=== PATIENT | male | born 1935 | race Caucasian/White ===

== ENCOUNTER 2021-08-19 14:25 | Inpatient (IN) | payer MEDICARE, OTHER ==
[2021-08-19] MEDS ORDERED: Sodium Chloride 0.9% 1,000 ML IV SCH ×2 (17:15→18:30)
[2021-08-19] MEDS ORDERED: Ondansetron PF 4 MG/2 ML Vial IVP PRN (17:36)
[2021-08-19] MEDS ORDERED: Ondansetron ODT 4 MG TAB PO PRN (17:36)
[2021-08-19] MEDS ORDERED: Acetaminophen 650 MG Suppository PR PRN (17:36)
[2021-08-19] MEDS ORDERED: Acetaminophen 325 MG TAB PO PRN (17:36)
[2021-08-19 18:11] LABS: Anion Gap 11 mmol/L (10-20); BUN (Urea Nitrogen) 15 mg/dL (8.4-25.7); Calc. Creatinine Clearance 61 mL/min (70-130); Calcium 8.6 mg/dL (7.8-10.44); Carbon Dioxide 24 mmol/L (23-31); Chloride 97 mmol/L (98-107); Estimated GFR 87; Glucose 117 mg/dL (83-110); Potassium 4.2 mmol/L (3.5-5.1); Sodium 128 mmol/L (136-145)
[2021-08-19 19:25] LABS: Sodium 128 mmol/L (136-145)
[2021-08-19] MEDS: Enoxaparin Sodium 40 MG/0.4 ML SYRINGE SC SCH (20:13)
[2021-08-19] MEDS: Tamsulosin HCl 0.4 MG CAP PO SCH (20:14)
[2021-08-20 02:11] LABS: Sodium 128 mmol/L (136-145)
[2021-08-20 04:46] LABS: #Lymphocytes 1.7 thou/uL (1.20-3.40); #Monocytes 0.9 thou/uL (0.11-0.59); #Neutrophils 4.6 thou/uL (1.40-6.50); %Basophils 0.4 % (0.0-1.0); %Eosinophils 0.3 % (0.0-10.0); %Lymphocytes 23.8 % (21.0-51.0); %Neutrophils 62.6 % (42.0-75.0); Hemoglobin 15.3 g/dL (14.0-18.0); Mean Corpuscular HGB CONC 34.1 g/dL (32.0-36.0); Mean Corpuscular Hemoglobin 32.2 pg (27.0-31.0); Mean Corpuscular Volume 94.3 fL (78.0-98.0); Mean Platelet Volume 6.4 fL (7.4-10.4); Platelet Count 195 thou/uL (130-400); RBC Distribution Width 11.8 % (11.5-14.5); Red Blood Cell (RBC) Count 4.76 mill/uL (4.70-6.10); White Blood Cell (WBC) Count 7.3 thou/uL (4.8-10.8)
[2021-08-20 05:07] LABS: Anion Gap 14 mmol/L (10-20); BUN (Urea Nitrogen) 14 mg/dL (8.4-25.7); Calc. Creatinine Clearance 61 mL/min (70-130); Calcium 8.7 mg/dL (7.8-10.44); Carbon Dioxide 21 mmol/L (23-31); Chloride 99 mmol/L (98-107); Estimated GFR 87; Glucose 95 mg/dL (83-110); Potassium 4.4 mmol/L (3.5-5.1); Sodium 130 mmol/L (136-145)
[2021-08-20] MEDS: Finasteride 5 MG TAB PO SCH (09:59)
[2021-08-20] MEDS: Tamsulosin HCl 0.4 MG CAP PO SCH ×2 (10:00→20:32)
[2021-08-20 12:35] VITALS: BMI 22.8
[2021-08-20 12:52] LABS: Sodium 128 mmol/L (136-145)
[2021-08-20] MEDS ORDERED: REMDESIVIR 100 MG in Sodium Chloride 0.9% 250 ML 230 ML IV SCH (13:15)
[2021-08-20] MEDS ORDERED: GUAIFENESIN SF SOLN 200 MG/10 ML UDCUP PO PRN (13:16)
[2021-08-20] MEDS ORDERED: Zinc Sulfate 220 MG CAP PO SCH (13:30)
[2021-08-20] MEDS ORDERED: Cholecalciferol 1,000 UNITS (25 MCG) TAB PO SCH (13:30)
[2021-08-20] MEDS ORDERED: Ascorbic Acid 500 mg Chewable Tablet PO SCH (13:30)
[2021-08-20] MEDS: Benzonatate 100 MG CAP PO SCH ×2 (14:13→20:34)
[2021-08-20] MEDS ORDERED: Albuterol 200 PUFF (6.7GM INHALER) INH PRN (14:30)
[2021-08-20 19:21] LABS: Sodium 130 mmol/L (136-145)
[2021-08-20] MEDS: Enoxaparin Sodium 40 MG/0.4 ML SYRINGE SC SCH (20:32)
[2021-08-20] MEDS: Cefepime 1 GM in Sodium Chloride 0.9% 100 ML IVPB SCH (20:32)
[2021-08-21 01:45] LABS: Sodium 130 mmol/L (136-145)
[2021-08-21 04:54] LABS: #Basophils 0.1 thou/uL (0.0-0.2); #Lymphocytes 1.3 thou/uL (1.20-3.40); #Monocytes 1.1 thou/uL (0.11-0.59); #Neutrophils 5.2 thou/uL (1.40-6.50); %Basophils 1.9 % (0.0-1.0); %Eosinophils 0.3 % (0.0-10.0); %Lymphocytes 16.8 % (21.0-51.0); Mean Corpuscular HGB CONC 33.9 g/dL (32.0-36.0); Mean Corpuscular Hemoglobin 32.1 pg (27.0-31.0); Mean Corpuscular Volume 94.6 fL (78.0-98.0); Mean Platelet Volume 6.4 fL (7.4-10.4); Platelet Count 214 thou/uL (130-400); RBC Distribution Width 11.7 % (11.5-14.5); Red Blood Cell (RBC) Count 4.67 mill/uL (4.70-6.10); White Blood Cell (WBC) Count 7.7 thou/uL (4.8-10.8)
[2021-08-21 05:06] LABS: Anion Gap 13 mmol/L (10-20); BUN (Urea Nitrogen) 13 mg/dL (8.4-25.7); Calc. Creatinine Clearance 65 mL/min (70-130); Calcium 8.3 mg/dL (7.8-10.44); Carbon Dioxide 18 mmol/L (23-31); Chloride 102 mmol/L (98-107); Estimated GFR 89; Glucose 86 mg/dL (83-110); Potassium 4.4 mmol/L (3.5-5.1); Sodium 129 mmol/L (136-145)
[2021-08-21] MEDS: Cefepime 1 GM in Sodium Chloride 0.9% 100 ML IVPB SCH (09:34)
[2021-08-21] MEDS: Finasteride 5 MG TAB PO SCH (09:35)
[2021-08-21] MEDS: Tamsulosin HCl 0.4 MG CAP PO SCH ×2 (09:35→20:49)
[2021-08-21] MEDS: Zinc Sulfate 220 MG CAP PO SCH (09:36)
[2021-08-21] MEDS: Cholecalciferol 1,000 UNITS (25 MCG) TAB PO SCH (09:36)
[2021-08-21] MEDS: Benzonatate 100 MG CAP PO SCH ×3 (09:36→20:49)
[2021-08-21] MEDS: Ascorbic Acid 500 mg Chewable Tablet PO SCH (09:36)
[2021-08-21 12:44] LABS: Campy jejuni + coli by PCR Negative (Negative); STEC Shiga Toxin 1+2 Negative (Negative); Salmonella spp. by PCR Negative (Negative); Shigella spp + EIEC by PCR Negative (Negative)
[2021-08-21] MEDS ORDERED: Diltiazem 125 MG in Sodium Chloride 0.9% 100 ML IVPB SCH (16:15)
[2021-08-21] MEDS: Enoxaparin Sodium 60 MG/0.6 ML SYRINGE SC SCH (20:48)
[2021-08-21] MEDS ORDERED: Cefepime 2 GM in Sodium Chloride 0.9% 100 ML IVPB SCH (21:00)
[2021-08-22 05:00] LABS: #Lymphocytes 1.5 thou/uL (1.20-3.40); #Monocytes 1.1 thou/uL (0.11-0.59); #Neutrophils 5.3 thou/uL (1.40-6.50); %Basophils 0.2 % (0.0-1.0); %Eosinophils 0.5 % (0.0-10.0); %Lymphocytes 18.4 % (21.0-51.0); %Monocytes 13.8 % (0.0-10.0); %Neutrophils 67.1 % (42.0-75.0); Hemoglobin 15.1 g/dL (14.0-18.0); Mean Corpuscular HGB CONC 33.9 g/dL (32.0-36.0); Mean Corpuscular Hemoglobin 32.1 pg (27.0-31.0); Mean Corpuscular Volume 94.8 fL (78.0-98.0); Mean Platelet Volume 6.3 fL (7.4-10.4); Platelet Count 224 thou/uL (130-400); RBC Distribution Width 11.7 % (11.5-14.5); Red Blood Cell (RBC) Count 4.71 mill/uL (4.70-6.10); White Blood Cell (WBC) Count 7.9 thou/uL (4.8-10.8)
[2021-08-22 05:43] LABS: Anion Gap 19 mmol/L (10-20); BUN (Urea Nitrogen) 17 mg/dL (8.4-25.7); Calc. Creatinine Clearance 61 mL/min (70-130); Calcium 8.7 mg/dL (7.8-10.44); Carbon Dioxide 13 mmol/L (23-31); Chloride 102 mmol/L (98-107); Estimated GFR 87; Glucose 87 mg/dL (83-110); Potassium 4.3 mmol/L (3.5-5.1); Sodium 130 mmol/L (136-145)
[2021-08-22] MEDS: Enoxaparin Sodium 60 MG/0.6 ML SYRINGE SC SCH ×2 (08:21→20:56)
[2021-08-22] MEDS: Finasteride 5 MG TAB PO SCH (08:22)
[2021-08-22] MEDS: Tamsulosin HCl 0.4 MG CAP PO SCH ×2 (08:22→20:56)
[2021-08-22] MEDS: Cholecalciferol 1,000 UNITS (25 MCG) TAB PO SCH (08:22)
[2021-08-22] MEDS: Ascorbic Acid 500 mg Chewable Tablet PO SCH (08:22)
[2021-08-22] MEDS: Zinc Sulfate 220 MG CAP PO SCH (08:22)
[2021-08-22] MEDS: Benzonatate 100 MG CAP PO SCH ×3 (08:23→20:56)
[2021-08-23 04:43] LABS: #Lymphocytes 1.4 thou/uL (1.20-3.40); #Monocytes 1.2 thou/uL (0.11-0.59); #Neutrophils 5.5 thou/uL (1.40-6.50); %Basophils 0.1 % (0.0-1.0); %Eosinophils 0.5 % (0.0-10.0); %Lymphocytes 17.6 % (21.0-51.0); %Monocytes 14.2 % (0.0-10.0); %Neutrophils 67.6 % (42.0-75.0); Hemoglobin 14.8 g/dL (14.0-18.0); Mean Corpuscular HGB CONC 33.8 g/dL (32.0-36.0); Mean Corpuscular Hemoglobin 32.3 pg (27.0-31.0); Mean Corpuscular Volume 95.4 fL (78.0-98.0); Mean Platelet Volume 6.3 fL (7.4-10.4); Platelet Count 246 thou/uL (130-400); RBC Distribution Width 11.7 % (11.5-14.5); Red Blood Cell (RBC) Count 4.59 mill/uL (4.70-6.10); White Blood Cell (WBC) Count 8.1 thou/uL (4.8-10.8)
[2021-08-23 05:10] LABS: BUN (Urea Nitrogen) 16 mg/dL (8.4-25.7); Calc. Creatinine Clearance 65 mL/min (70-130); Calcium 8.6 mg/dL (7.8-10.44); Carbon Dioxide 19 mmol/L (23-31); Chloride 100 mmol/L (98-107); Estimated GFR 89; Glucose 81 mg/dL (83-110); Potassium 4.4 mmol/L (3.5-5.1); Sodium 131 mmol/L (136-145)
[2021-08-23 05:51] LABS: Anion Gap 16 mmol/L (10-20)
[2021-08-23] MEDS: Enoxaparin Sodium 60 MG/0.6 ML SYRINGE SC SCH (09:42)
[2021-08-23] MEDS: Benzonatate 100 MG CAP PO SCH (09:42)
[2021-08-23] MEDS: Cholecalciferol 1,000 UNITS (25 MCG) TAB PO SCH (09:42)
[2021-08-23] MEDS: Finasteride 5 MG TAB PO SCH (09:42)
[2021-08-23] MEDS: Ascorbic Acid 500 mg Chewable Tablet PO SCH (09:42)
[2021-08-23] MEDS: Zinc Sulfate 220 MG CAP PO SCH (09:43)
[2021-08-23] MEDS: Tamsulosin HCl 0.4 MG CAP PO SCH (09:43)
[2021-08-23 16:22] VITALS: BP 109/62; TEMP 97.6
== END 2021-08-23 17:05 | disposition home or self-care (01) | DRG 178 ==
LOC: 2SW 15:37 → OBSVTOIN 08-21 08:52
PROVIDERS: ADMIT Hospitalist; ATTEND Hospitalist
PROC: 8E0ZXY6 Isolation (ICD-10-PCS; principal; 2021-08-21)
DX: U07.1 COVID-19 (principal); E87.1 Hypo-osmolality and hyponatremia; I48.92 Unspecified atrial flutter; N40.0 Benign prostatic hyperplasia without lower urinary tract symptoms; I45.5 Other specified heart block; I48.0 Paroxysmal atrial fibrillation; Z79.899 Other long term (current) drug therapy
CPT/HCPCS: 36415; 80048; 83630; 85025; 87338; 87505; 87798; 93005; 93010; 93306; 94760; J0692; J1650; J2405; J3490; J7050

== ENCOUNTER 2023-08-07 15:08 | Inpatient (IN) | payer OTHER ==
[2023-08-07] MEDS ORDERED: Bacitracin 1 PK ONE (15:40)
[2023-08-07] MEDS ORDERED: Morphine 4 MG/ML VIAL ONE (15:50)
[2023-08-07 16:13] LABS: #Basophils 0.04 10x3/uL (0.0-0.2); %Basophils 0.3 % (0.0-1.0); %Eosinophils 0.5 % (0.0-10.0); %Lymphocytes 9.5 % (21.0-51.0); %Monocytes 6.3 % (0.0-10.0); %Neutrophils 82.8 % (42.0-75.0); Hematocrit 40.4 % (42.0-52.0); Hemoglobin 14.1 g/dL (14.0-18.0); Mean Corpuscular HGB CONC 34.9 g/dL (32.0-36.0); Mean Corpuscular Hemoglobin 32.6 pg (27.0-31.0); Mean Corpuscular Volume 93.5 fL (78.0-98.0); Mean Platelet Volume 8.9 fL (7.4-10.4); Platelet Count 239 10x3/uL (130-400); RBC Distribution Width 12.3 % (11.5-14.5); Red Blood Cell (RBC) Count 4.32 mill/uL (4.70-6.10)
[2023-08-07 16:27] LABS: INR-International Normal Ratio 1.3; Prothrombin Time 16.2 sec (12.0-14.7)
[2023-08-07 16:28] LABS: PTT 29.7 sec (22.9-36.1)
[2023-08-07 16:33] LABS: Troponin I Less than 0.010 ng/mL (< 0.028)
[2023-08-07 16:38] LABS: ALT (SGPT) 10 U/L (8-55); AST (SGOT) 14 U/L (5-34); Albumin 3.3 g/dL (3.4-4.8); Alkaline Phosphatase 62 U/L (40-110); Anion Gap 11 mmol/L (10-20); BUN (Urea Nitrogen) 15 mg/dL (8.4-25.7); Bilirubin, Total 0.4 mg/dL (0.2-1.2); Calc. Creatinine Clearance 0 mL/min (70-130); Calcium 8.7 mg/dL (7.8-10.44); Carbon Dioxide 21 mmol/L (23-31); Chloride 103 mmol/L (98-107); Estimated GFR 84; Globulin 2.7 g/dL (2.4-3.5); Glucose 120 mg/dL (83-110); Potassium 4.4 mmol/L (3.5-5.1); Sodium 131 mmol/L (136-145)
[2023-08-07] MEDS ORDERED: Orphenadrine Citrate 60 MG/2 ML VIAL ONE (16:54)
[2023-08-07] MEDS ORDERED: Nicotine 14 MG PATCH ONE (16:54)
[2023-08-07] MEDS ORDERED: Ipratropium/Albuterol 3 ML NEB NEB PRN (18:51)
[2023-08-07] MEDS ORDERED: Ondansetron PF 4 MG/2 ML Vial IVP PRN (18:51)
[2023-08-07] MEDS ORDERED: HYDROmorphone 0.5 MG/0.5 ML SYRINGE ONE (20:19)
[2023-08-07] MEDS: Tamsulosin HCl 0.4 MG CAP PO SCH (20:56)
[2023-08-07] MEDS: Acetaminophen 325 MG TAB PO SCH (20:56)
[2023-08-07] MEDS: Morphine 2 MG/ML VIAL SLOW IVP PRN (20:57)
[2023-08-07] MEDS: Acetaminophen/Codeine 30-300mg Tablet PO SCH (20:57)
[2023-08-07] MEDS: Famotidine/PF 20 mg/2ml Vial SLOW IVP SCH (20:58)
[2023-08-07] MEDS: Sodium Chloride 0.9% 1,000 ML IV SCH (20:58)
[2023-08-07] MEDS: Senokot S 8.6-50 MG TAB PO SCH (21:21)
[2023-08-07] MEDS: Lactulose 20 GM (30 mL) UDCUP PO SCH (21:21)
[2023-08-07 21:24] VITALS: BMI 22.6
[2023-08-07] MEDS: Cyclobenzaprine 10 MG TAB PO PRN (23:55)
[2023-08-08 09:31] LABS: INR-International Normal Ratio 1.4; PTT 25.9 sec (22.9-36.1); Prothrombin Time 16.8 sec (12.0-14.7)
[2023-08-08 09:32] LABS: #Basophils Less than 0.03 10x3/uL (0.0-0.2); %Basophils 0.2 % (0.0-1.0); %Eosinophils 0.4 % (0.0-10.0); %Lymphocytes 15.8 % (21.0-51.0); %Monocytes 8.9 % (0.0-10.0); %Neutrophils 74.5 % (42.0-75.0); Hematocrit 30.2 % (42.0-52.0); Hemoglobin 10.6 g/dL (14.0-18.0); Mean Corpuscular HGB CONC 35.1 g/dL (32.0-36.0); Mean Corpuscular Volume 94.1 fL (78.0-98.0); Mean Platelet Volume 8.9 fL (7.4-10.4); Platelet Count 186 10x3/uL (130-400); RBC Distribution Width 12.5 % (11.5-14.5); Red Blood Cell (RBC) Count 3.21 mill/uL (4.70-6.10)
[2023-08-08] MEDS: Finasteride 5 MG TAB PO SCH (09:40)
[2023-08-08] MEDS: Polyethylene Glycol 3350 17 GM Packet PO SCH (10:29)
[2023-08-08 10:45] LABS: Anion Gap 10 mmol/L (10-20); BUN (Urea Nitrogen) 15 mg/dL (8.4-25.7); Calc. Creatinine Clearance 64 mL/min (70-130); Calcium 7.8 mg/dL (7.8-10.44); Carbon Dioxide 18 mmol/L (23-31); Chloride 109 mmol/L (98-107); Estimated GFR 88; Glucose 100 mg/dL (83-110); Potassium 4.4 mmol/L (3.5-5.1); Sodium 133 mmol/L (136-145)
[2023-08-09 05:26] LABS: #Basophils 0.03 10x3/uL (0.0-0.2); %Basophils 0.3 % (0.0-1.0); %Eosinophils 1.3 % (0.0-10.0); %Lymphocytes 12.8 % (21.0-51.0); %Monocytes 8.1 % (0.0-10.0); %Neutrophils 77.2 % (42.0-75.0); Hematocrit 30.4 % (42.0-52.0); Hemoglobin 10.5 g/dL (14.0-18.0); Mean Corpuscular HGB CONC 34.5 g/dL (32.0-36.0); Mean Corpuscular Volume 95.6 fL (78.0-98.0); Mean Platelet Volume 8.8 fL (7.4-10.4); Platelet Count 184 10x3/uL (130-400); RBC Distribution Width 12.6 % (11.5-14.5); Red Blood Cell (RBC) Count 3.18 mill/uL (4.70-6.10)
[2023-08-09 05:53] LABS: Anion Gap 11 mmol/L (10-20); BUN (Urea Nitrogen) 12 mg/dL (8.4-25.7); Calc. Creatinine Clearance 65 mL/min (70-130); Calcium 8.4 mg/dL (7.8-10.44); Carbon Dioxide 20 mmol/L (23-31); Chloride 108 mmol/L (98-107); Estimated GFR 88; Glucose 96 mg/dL (83-110); Potassium 4.7 mmol/L (3.5-5.1); Sodium 134 mmol/L (136-145)
[2023-08-09] MEDS ORDERED: CEFAZOLIN 2 GM VIAL ONE (08:04)
[2023-08-09] MEDS ORDERED: Sodium Chloride 0.9% 100 ML ONE (08:04)
[2023-08-09] MEDS ORDERED: Ipratropium/Albuterol 3 ML NEB ONE (08:10)
[2023-08-09] MEDS ORDERED: Vasopressin 20 UNITS/ML VIAL ONE (08:21)
[2023-08-09] MEDS ORDERED: Etomidate 40 MG (20 mL) VIAL ONE ×2 (08:22→08:23)
[2023-08-09] MEDS ORDERED: PHENYLEPHRINE-NS 100 MCG/ML 10 ML SYRINGE ONE ×2 (08:42→09:34)
[2023-08-09] MEDS ORDERED: CEFAZOLIN 2 GM in Sodium Chloride 0.9% 100 ML IVPB SCH (09:00)
[2023-08-09] MEDS ORDERED: fentaNYL 50 mcg/mL 1 mL Vial ONE ×2 (09:06→09:55)
[2023-08-09] MEDS ORDERED: Ondansetron PF 4 MG/2 ML Vial ONE (09:07)
[2023-08-09] MEDS ORDERED: fentaNYL PF 100 MCG/2 ML SYRINGE ONE ×2 (09:59→10:25)
[2023-08-09 10:27] LABS: Hematocrit 26.5 % (42.0-52.0); Hemoglobin 9.1 g/dL (14.0-18.0); Mean Corpuscular HGB CONC 34.3 g/dL (32.0-36.0); Platelet Count 166 10x3/uL (130-400); RBC Distribution Width 12.7 % (11.5-14.5); Red Blood Cell (RBC) Count 2.76 mill/uL (4.70-6.10)
[2023-08-09 11:30] LABS: Actual Bicarbonate (HCO3a) 18.6 mEq/L (22-28); Analyzer IN Cardio ER; Base Excess (BEa) -4.8 mEq/L (-2.0 to +3.0); CO2 Tension 29.1 mmHg (35.0-45.0); Calcium, Ionized (arterial) 1.13 mmol/L (1.12-1.30); Carboxyhemoglobin (COHb) 0.3 gm% (0.0-3.0); Hematocrit-ABG 31 % (42.0-52.0); Hemoglobin (Hb) 10.7 g/dL (14.0-18.0); O2 Tension (PaO2), arterial 64.6 mmHg (> 60.0); Potassium - ABG Lab 4.02 mmol/L (3.70-5.30); pH, Arterial 7.423 (7.35-7.45)
[2023-08-09 11:35] LABS: Puncture Site RBRA
[2023-08-09] MEDS: Ipratropium/Albuterol 3 ML NEB NEB SCH ×2 (12:12→12:17)
[2023-08-09] MEDS: methylPREDNISolone Sod Succ 40 MG VIAL IVP SCH ×2 (12:13→20:23)
[2023-08-09] MEDS ORDERED: Iopamidol 370 76% 100 ML VIAL ONE (14:15)
[2023-08-09] MEDS: CEFAZOLIN 2 GM in Sodium Chloride 0.9% 100 ML IVPB SCH (14:59)
[2023-08-09] MEDS: Cefepime 1 GM in Sodium Chloride 0.9% 100 ML IVPB SCH (17:08)
[2023-08-10 06:50] LABS: #Basophils Less than 0.03 10x3/uL (0.0-0.2); #Eosinphils Less than 0.03 10x3/uL (0.0-0.7); %Basophils 0.1 % (0.0-1.0); %Lymphocytes 5.6 % (21.0-51.0); %Monocytes 4.2 % (0.0-10.0); %Neutrophils 89.7 % (42.0-75.0); Hematocrit 24.4 % (42.0-52.0); Hemoglobin 8.6 g/dL (14.0-18.0); Mean Corpuscular HGB CONC 35.2 g/dL (32.0-36.0); Mean Corpuscular Hemoglobin 32.5 pg (27.0-31.0); Mean Corpuscular Volume 92.1 fL (78.0-98.0); Mean Platelet Volume 9.6 fL (7.4-10.4); Platelet Count 195 10x3/uL (130-400); RBC Distribution Width 12.7 % (11.5-14.5); Red Blood Cell (RBC) Count 2.65 mill/uL (4.70-6.10)
[2023-08-10 07:26] LABS: Anion Gap 12 mmol/L (10-20); BUN (Urea Nitrogen) 19 mg/dL (8.4-25.7); Calc. Creatinine Clearance 58 mL/min (70-130); Calcium 8.2 mg/dL (7.8-10.44); Carbon Dioxide 17 mmol/L (23-31); Chloride 107 mmol/L (98-107); Estimated GFR 86; Glucose 147 mg/dL (83-110); Potassium 4.1 mmol/L (3.5-5.1); Sodium 132 mmol/L (136-145)
[2023-08-10] MEDS: Famotidine 20 MG TAB PO SCH (09:49)
[2023-08-10] MEDS: Apixaban 2.5 MG TAB PO SCH (09:50)
[2023-08-11 05:43] LABS: #Basophils Less than 0.03 10x3/uL (0.0-0.2); #Eosinphils Less than 0.03 10x3/uL (0.0-0.7); %Basophils 0.1 % (0.0-1.0); %Lymphocytes 4.4 % (21.0-51.0); %Monocytes 4.8 % (0.0-10.0); %Neutrophils 90.1 % (42.0-75.0); Hematocrit 21.8 % (42.0-52.0); Hemoglobin 7.6 g/dL (14.0-18.0); Mean Corpuscular HGB CONC 34.9 g/dL (32.0-36.0); Mean Corpuscular Hemoglobin 32.3 pg (27.0-31.0); Mean Corpuscular Volume 92.8 fL (78.0-98.0); Mean Platelet Volume 9.5 fL (7.4-10.4); Platelet Count 219 10x3/uL (130-400); RBC Distribution Width 13.1 % (11.5-14.5); Red Blood Cell (RBC) Count 2.35 mill/uL (4.70-6.10)
[2023-08-11 06:00] LABS: Anion Gap 12 mmol/L (10-20); BUN (Urea Nitrogen) 28 mg/dL (8.4-25.7); Calc. Creatinine Clearance 62 mL/min (70-130); Calcium 8.3 mg/dL (7.8-10.44); Carbon Dioxide 17 mmol/L (23-31); Chloride 110 mmol/L (98-107); Estimated GFR 87; Glucose 135 mg/dL (83-110); Potassium 4.3 mmol/L (3.5-5.1); Sodium 135 mmol/L (136-145)
[2023-08-12 07:55] LABS: #Basophils Less than 0.03 10x3/uL (0.0-0.2); %Basophils 0.1 % (0.0-1.0); %Eosinophils 0.2 % (0.0-10.0); %Lymphocytes 12.8 % (21.0-51.0); %Monocytes 7.3 % (0.0-10.0); %Neutrophils 77.9 % (42.0-75.0); Hematocrit 27.1 % (42.0-52.0); Hemoglobin 9.3 g/dL (14.0-18.0); Mean Corpuscular HGB CONC 34.3 g/dL (32.0-36.0); Mean Corpuscular Volume 93.1 fL (78.0-98.0); Mean Platelet Volume 8.7 fL (7.4-10.4); Platelet Count 222 10x3/uL (130-400); RBC Distribution Width 14.3 % (11.5-14.5); Red Blood Cell (RBC) Count 2.91 mill/uL (4.70-6.10)
[2023-08-12 08:11] LABS: ALT (SGPT) 21 U/L (8-55); AST (SGOT) 51 U/L (5-34); Albumin 2.9 g/dL (3.4-4.8); Alkaline Phosphatase 42 U/L (40-110); Anion Gap 12 mmol/L (10-20); BUN (Urea Nitrogen) 31 mg/dL (8.4-25.7); Bilirubin, Total 1.8 mg/dL (0.2-1.2); Calc. Creatinine Clearance 61 mL/min (70-130); Calcium 8.5 mg/dL (7.8-10.44); Carbon Dioxide 19 mmol/L (23-31); Chloride 107 mmol/L (98-107); Estimated GFR 87; Globulin 2.7 g/dL (2.4-3.5); Glucose 93 mg/dL (83-110); Potassium 4.4 mmol/L (3.5-5.1); Protein, Total 5.6 g/dL (5.8-8.1); Sodium 134 mmol/L (136-145)
[2023-08-12] MEDS: Acetaminophen/Codeine 30-300mg Tablet PO SCH (09:32)
[2023-08-12 15:53] VITALS: BP 119/54; TEMP 97.8
[2023-08-13] MEDS ORDERED: LevoFLOXacin 750 MG TAB PO SCH (06:00)
== END 2023-08-12 18:17 | disposition swing bed (61) | DRG 480 ==
LOC: ERS 15:08 → SURG A 18:51
PROVIDERS: ADMIT Specialist; ATTEND Specialist
PROC: 0QS706Z Reposition Left Upper Femur with Intramedullary Internal Fixation Device, Open Approach (ICD-10-PCS; principal; 2023-08-09)
PROC: 4A033R1 Measurement of Arterial Saturation, Peripheral, Percutaneous Approach (ICD-10-PCS; 2023-08-09)
PROC: 3E033XZ Introduction of Vasopressor into Peripheral Vein, Percutaneous Approach (ICD-10-PCS; 2023-08-09)
PROC: 30233N1 Transfusion of Nonautologous Red Blood Cells into Peripheral Vein, Percutaneous Approach (ICD-10-PCS; 2023-08-11)
DX: S72.21XA Displaced subtrochanteric fracture of right femur, initial encounter for closed fracture (principal); J18.9 Pneumonia, unspecified organism; J96.01 Acute respiratory failure with hypoxia; S72.141A Displaced intertrochanteric fracture of right femur, initial encounter for closed fracture; I48.91 Unspecified atrial fibrillation; F17.210 Nicotine dependence, cigarettes, uncomplicated; N40.0 Benign prostatic hyperplasia without lower urinary tract symptoms; Z98.890 Other specified postprocedural states; D72.829 Elevated white blood cell count, unspecified; D64.9 Anemia, unspecified; W19.XXXA Unspecified fall, initial encounter
CPT/HCPCS: 36415; 36416; 36430; 71045; 71275; 80048; 80053; 82805; 84145; 84484; 85025; 85379; 85610; 85730; 86850; 86900; 86901; 87040; 87070; 87081; 87205; 93005; 94640; 96372; 96374; 96375; C1713; G0390; J0692; J1170; J2270; J2272; J2360; J2405; J2920; J3010; J3490; J7050; J7620; P9016; Q9967; S0028

== ENCOUNTER 2023-08-13 20:09 | Inpatient (IN) | payer OTHER ==
[2023-08-13] MEDS ORDERED: Ondansetron PF 4 MG/2 ML Vial IVP PRN (21:06)
[2023-08-13] MEDS ORDERED: Cyclobenzaprine 10 MG TAB PO PRN (21:09)
[2023-08-13 21:39] VITALS: BMI 23.5
[2023-08-13] MEDS: Sodium Chloride 0.9% 1,000 ML IV SCH (22:46)
[2023-08-13] MEDS: Lidocaine 4% Patch TD SCH (23:48)
[2023-08-14 00:46] LABS: Bacteria/HPF None Seen HPF (None Seen); Bilirubin Negative (Negative); Blood, Urine 3+ (Negative); Clarity Extra Turbid (Clear); Glucose, Urine (Dipstick) Normal (Negative); Ketone, Urine 10 mg/dL (Negative); Leukocyte 25 Leu/uL (Negative); Nitrite Negative (Negative); Protein, Urine (Dipstick) 100 mg/dL (Neg-Trace); RBC/HPF Greater than 50 HPF (0-3); Squamous Epithelial None Seen HPF (0-3); Urobilinogen Normal mg/dL (Less than 2); WBC/HPF Greater than 50 HPF (0-3)
[2023-08-14 00:51] LABS: Sperm/HPF 2+ HPF (None Seen)
[2023-08-14] MEDS: LevoFLOXacin 500 mg/D5W 500 MG in Premix 1 BAG IVPB SCH ×2 (01:35→06:19)
[2023-08-14 04:54] LABS: #Basophils Less than 0.03 10x3/uL (0.0-0.2); %Basophils 0.1 % (0.0-1.0); %Eosinophils 1.5 % (0.0-10.0); %Lymphocytes 9.6 % (21.0-51.0); %Monocytes 6.3 % (0.0-10.0); %Neutrophils 78.8 % (42.0-75.0); Hemoglobin 7.9 g/dL (14.0-18.0); Mean Corpuscular HGB CONC 32.9 g/dL (32.0-36.0); Mean Corpuscular Hemoglobin 32.8 pg (27.0-31.0); Mean Corpuscular Volume 99.6 fL (78.0-98.0); Mean Platelet Volume 8.9 fL (7.4-10.4); Platelet Count 196 10x3/uL (130-400); RBC Distribution Width 13.9 % (11.5-14.5); Red Blood Cell (RBC) Count 2.41 mill/uL (4.70-6.10)
[2023-08-14 05:20] LABS: Anion Gap 8 mmol/L (10-20); BUN (Urea Nitrogen) 17 mg/dL (8.4-25.7); Calc. Creatinine Clearance 100 mL/min (70-130); Calcium 5.4 mg/dL (7.8-10.44); Carbon Dioxide 15 mmol/L (23-31); Chloride 120 mmol/L (98-107); Estimated GFR 99; Glucose 67 mg/dL (83-110); Potassium 3.1 mmol/L (3.5-5.1); Sodium 140 mmol/L (136-145)
[2023-08-14] MEDS: Calcium Gluc 4.6 MEQ/10 ML (100 MG/ML) SLOW IVP SCH (06:06)
[2023-08-14 06:29] LABS: ALT (SGPT) 10 U/L (8-55); AST (SGOT) 17 U/L (5-34); Albumin 1.6 g/dL (3.4-4.8); Alkaline Phosphatase 31 U/L (40-110); Bilirubin, Direct 0.6 mg/dL (0.1-0.3); Bilirubin, Total 1.4 mg/dL (0.2-1.2); Protein, Total 3.1 g/dL (5.8-8.1)
[2023-08-14] MEDS: Ipratropium/Albuterol 3 ML NEB NEB SCH (06:29)
[2023-08-14] MEDS ORDERED: Electrolyte Replacement Protocol 1 EACH FS SCH (08:00)
[2023-08-14] MEDS ORDERED: Lidocaine 4% Patch TD SCH (09:00)
[2023-08-14] MEDS ORDERED: Apixaban 2.5 MG TAB PO SCH (09:00)
[2023-08-14] MEDS ORDERED: Tadalafil 5 MG Tablet PO SCH (09:00)
[2023-08-14] MEDS: D5 1/2 NS w/20 mEq KCL 1,000 ML IV SCH (09:33)
[2023-08-14] MEDS: Potassium Chloride 20 MEQ in Premix 1 BAG IVPB SCH (09:34)
[2023-08-14] MEDS: metroNIDAZOLE 500 MG in Premix 1 BAG IVPB SCH (09:34)
[2023-08-14] MEDS ORDERED: PROPOFOL 20 ML ONE ×2 (12:47→12:49)
[2023-08-14] MEDS ORDERED: Lidocaine 2% PF 5 ML VIAL ONE (12:47)
[2023-08-14] MEDS ORDERED: PHENYLEPHRINE-NS 100 MCG/ML 10 ML SYRINGE ONE (13:36)
[2023-08-14] MEDS ORDERED: fentaNYL 50 mcg/mL 1 mL Vial ONE (14:31)
[2023-08-14] MEDS: Finasteride 5 MG TAB PO SCH (16:25)
[2023-08-14] MEDS: Polyethylene Glycol 3350 17 GM Packet PO SCH (16:26)
[2023-08-14] MEDS: Transdermal Patch Removal TOP SCH (16:26)
[2023-08-14] MEDS: Senokot S 8.6-50 MG TAB PO SCH (16:26)
[2023-08-14] MEDS: Lactulose 20 GM (30 mL) UDCUP PO SCH (16:26)
[2023-08-14] MEDS: Tamsulosin HCl 0.4 MG CAP PO SCH (16:26)
[2023-08-14] MEDS: Pantoprazole 40 MG VIAL IVP SCH (16:28)
[2023-08-14] MEDS: Lidocaine 4% Patch TD SCH (20:13)
[2023-08-14] MEDS ORDERED: Transdermal Patch Removal TOP SCH (21:00)
[2023-08-15] MEDS: Acetaminophen/Codeine 30-300mg Tablet PO PRN (00:59)
[2023-08-15 03:54] LABS: #Basophils 0.03 10x3/uL (0.0-0.2); %Basophils 0.2 % (0.0-1.0); %Eosinophils 2.1 % (0.0-10.0); %Lymphocytes 10.1 % (21.0-51.0); %Monocytes 6.9 % (0.0-10.0); %Neutrophils 77.4 % (42.0-75.0); Hematocrit 30.7 % (42.0-52.0); Mean Corpuscular HGB CONC 32.6 g/dL (32.0-36.0); Mean Corpuscular Hemoglobin 32.1 pg (27.0-31.0); Mean Corpuscular Volume 98.4 fL (78.0-98.0); Mean Platelet Volume 8.8 fL (7.4-10.4); Platelet Count 260 10x3/uL (130-400); RBC Distribution Width 13.8 % (11.5-14.5); Red Blood Cell (RBC) Count 3.12 mill/uL (4.70-6.10)
[2023-08-15 04:26] LABS: ALT (SGPT) 15 U/L (8-55); AST (SGOT) 21 U/L (5-34); Albumin 2.4 g/dL (3.4-4.8); Alkaline Phosphatase 50 U/L (40-110); Anion Gap 14 mmol/L (10-20); BUN (Urea Nitrogen) 20 mg/dL (8.4-25.7); Bilirubin, Total 1.8 mg/dL (0.2-1.2); Calc. Creatinine Clearance 72 mL/min (70-130); Calcium 8.2 mg/dL (7.8-10.44); Carbon Dioxide 18 mmol/L (23-31); Chloride 107 mmol/L (98-107); Estimated GFR 90; Globulin 2.4 g/dL (2.4-3.5); Glucose 112 mg/dL (83-110); Magnesium 1.9 mg/dL (1.6-2.6); Phosphorus 2.7 mg/dL (2.3-4.7); Potassium 4.7 mmol/L (3.5-5.1); Protein, Total 4.8 g/dL (5.8-8.1); Sodium 134 mmol/L (136-145)
[2023-08-15 10:07] VITALS: BMI 23.5
[2023-08-15] MEDS: Lansoprazole 30 MG/10 ML UDCUP PER TUBE SCH (15:35)
[2023-08-15] MEDS: Apixaban 2.5 MG TAB PER TUBE SCH (22:46)
[2023-08-15] MEDS: Bisacodyl 10 MG SUPP PR SCH (22:47)
[2023-08-15] MEDS: Acetaminophen 325 MG TAB PO PRN (22:53)
[2023-08-16 04:18] LABS: #Basophils Less than 0.03 10x3/uL (0.0-0.2); %Basophils 0.2 % (0.0-1.0); %Eosinophils 3.4 % (0.0-10.0); %Lymphocytes 11.1 % (21.0-51.0); %Monocytes 9.2 % (0.0-10.0); %Neutrophils 72.1 % (42.0-75.0); Hemoglobin 9.5 g/dL (14.0-18.0); Mean Corpuscular HGB CONC 33.9 g/dL (32.0-36.0); Mean Corpuscular Hemoglobin 32.9 pg (27.0-31.0); Mean Corpuscular Volume 96.9 fL (78.0-98.0); Mean Platelet Volume 8.6 fL (7.4-10.4); Platelet Count 286 10x3/uL (130-400); RBC Distribution Width 13.9 % (11.5-14.5); Red Blood Cell (RBC) Count 2.89 mill/uL (4.70-6.10)
[2023-08-16 04:38] LABS: ALT (SGPT) 12 U/L (8-55); AST (SGOT) 16 U/L (5-34); Albumin 2.3 g/dL (3.4-4.8); Alkaline Phosphatase 48 U/L (40-110); Anion Gap 11 mmol/L (10-20); BUN (Urea Nitrogen) 21 mg/dL (8.4-25.7); Bilirubin, Total 1.4 mg/dL (0.2-1.2); Calc. Creatinine Clearance 77 mL/min (70-130); Calcium 8.1 mg/dL (7.8-10.44); Carbon Dioxide 23 mmol/L (23-31); Chloride 105 mmol/L (98-107); Estimated GFR 92; Globulin 2.3 g/dL (2.4-3.5); Glucose 107 mg/dL (83-110); Magnesium 1.9 mg/dL (1.6-2.6); Phosphorus 2.6 mg/dL (2.3-4.7); Potassium 4.3 mmol/L (3.5-5.1); Protein, Total 4.6 g/dL (5.8-8.1); Sodium 135 mmol/L (136-145)
[2023-08-16] MEDS ORDERED: dilTIAZem 30 MG TAB PO PRN (12:00)
[2023-08-16] MEDS ORDERED: Metoprolol Tartrate 25 MG TAB PER TUBE SCH (12:15)
[2023-08-16] MEDS: Metoprolol Tartrate 25 MG TAB PER TUBE SCH (12:34)
[2023-08-16] MEDS: Digoxin 0.25 MG TAB PER TUBE SCH (12:34)
[2023-08-16] MEDS: Milk Of Magnesia 30 ML UDCUP PER TUBE SCH (12:34)
[2023-08-16] MEDS: Magnesium 2 GM/50 ML(in water) 2 GM in Premix 1 BAG IVPB SCH (13:31)
[2023-08-16] MEDS: cefTRIAXone\\ROCEPHIN 1 GM in Sodium Chloride 0.9% 100 ML IVPB SCH (13:32)
[2023-08-16] MEDS ORDERED: Atropine Sulfate 1 mg/1 ml Vial IVP PRN (13:56)
[2023-08-16] MEDS: metroNIDAZOLE 500 MG TAB PER TUBE SCH (14:49)
[2023-08-16] MEDS ORDERED: Albumin 25% 25 GM (100 mL) BOT IVPB SCH (16:00)
[2023-08-16] MEDS: Polyethylene Glycol 3350 17 GM Packet PO SCH (22:06)
[2023-08-17 06:44] LABS: #Basophils 0.04 10x3/uL (0.0-0.2); %Basophils 0.3 % (0.0-1.0); %Eosinophils 2.8 % (0.0-10.0); %Lymphocytes 10.5 % (21.0-51.0); %Monocytes 7.4 % (0.0-10.0); %Neutrophils 75.7 % (42.0-75.0); Hemoglobin 10.3 g/dL (14.0-18.0); Mean Corpuscular HGB CONC 33.2 g/dL (32.0-36.0); Mean Corpuscular Hemoglobin 31.6 pg (27.0-31.0); Mean Corpuscular Volume 95.1 fL (78.0-98.0); Mean Platelet Volume 8.9 fL (7.4-10.4); Platelet Count 327 10x3/uL (130-400); RBC Distribution Width 13.9 % (11.5-14.5); Red Blood Cell (RBC) Count 3.26 mill/uL (4.70-6.10)
[2023-08-17 07:00] LABS: Anion Gap 11 mmol/L (10-20); Calc. Creatinine Clearance 74 mL/min (70-130); Calcium 8.2 mg/dL (7.8-10.44); Carbon Dioxide 23 mmol/L (23-31); Chloride 105 mmol/L (98-107); Estimated GFR 91; Glucose 107 mg/dL (83-110); Magnesium 2.2 mg/dL (1.6-2.6); Potassium 4.5 mmol/L (3.5-5.1); Sodium 134 mmol/L (136-145)
[2023-08-17 08:16] LABS: BUN (Urea Nitrogen) 18 mg/dL (8.4-25.7)
[2023-08-17] MEDS ORDERED: Flecainide Acetate 100 MG TAB PO SCH (09:00)
[2023-08-17] MEDS: Tamsulosin HCl 0.4 MG CAP PO SCH (10:22)
[2023-08-17] MEDS ORDERED: Bisacodyl 10 MG SUPP PR SCH (12:45)
[2023-08-17] MEDS: Milk Of Magnesia 30 ML UDCUP PO SCH (16:16)
[2023-08-17] MEDS: Dronedarone HCl 400 MG TAB PO SCH (16:16)
[2023-08-18 05:39] LABS: #Basophils Less than 0.03 10x3/uL (0.0-0.2); %Basophils 0.2 % (0.0-1.0); %Lymphocytes 13.5 % (21.0-51.0); %Monocytes 8.9 % (0.0-10.0); %Neutrophils 71.5 % (42.0-75.0); Hematocrit 33.8 % (42.0-52.0); Hemoglobin 11.3 g/dL (14.0-18.0); Mean Corpuscular HGB CONC 33.4 g/dL (32.0-36.0); Mean Corpuscular Hemoglobin 32.6 pg (27.0-31.0); Mean Corpuscular Volume 97.4 fL (78.0-98.0); Mean Platelet Volume 9.3 fL (7.4-10.4); Platelet Count 318 10x3/uL (130-400); RBC Distribution Width 14.2 % (11.5-14.5); Red Blood Cell (RBC) Count 3.47 mill/uL (4.70-6.10)
[2023-08-18 06:02] LABS: Anion Gap 13 mmol/L (10-20); BUN (Urea Nitrogen) 19 mg/dL (8.4-25.7); Calc. Creatinine Clearance 71 mL/min (70-130); Calcium 8.6 mg/dL (7.8-10.44); Carbon Dioxide 22 mmol/L (23-31); Chloride 104 mmol/L (98-107); Estimated GFR 90; Glucose 84 mg/dL (83-110); Magnesium 2.1 mg/dL (1.6-2.6); Potassium 4.6 mmol/L (3.5-5.1); Sodium 134 mmol/L (136-145)
[2023-08-18] MEDS: Amoxicillin/Potassium Clav 600 mg/5 ml Oral Suspension PER TUBE SCH (21:17)
[2023-08-19] MEDS ORDERED: Apixaban 2.5 MG TAB PER TUBE SCH (07:06)
[2023-08-19] MEDS: Senokot S 8.6-50 MG TAB PO SCH (10:32)
[2023-08-19] MEDS: Metoprolol Tartrate 5 MG (5 mL) VIAL IVP SCH (10:32)
[2023-08-19] MEDS: Apixaban 5 MG TAB PER TUBE SCH (10:33)
[2023-08-20 05:20] LABS: #Basophils 0.04 10x3/uL (0.0-0.2); %Basophils 0.3 % (0.0-1.0); %Eosinophils 1.5 % (0.0-10.0); %Monocytes 7.4 % (0.0-10.0); %Neutrophils 80.2 % (42.0-75.0); Hematocrit 32.9 % (42.0-52.0); Hemoglobin 11.2 g/dL (14.0-18.0); Mean Corpuscular Hemoglobin 31.9 pg (27.0-31.0); Mean Corpuscular Volume 93.7 fL (78.0-98.0); Mean Platelet Volume 8.8 fL (7.4-10.4); Platelet Count 339 10x3/uL (130-400); RBC Distribution Width 14.5 % (11.5-14.5); Red Blood Cell (RBC) Count 3.51 mill/uL (4.70-6.10)
[2023-08-20 05:39] LABS: ALT (SGPT) 11 U/L (8-55); AST (SGOT) 23 U/L (5-34); Albumin 2.7 g/dL (3.4-4.8); Alkaline Phosphatase 72 U/L (40-110); Anion Gap 11 mmol/L (10-20); BUN (Urea Nitrogen) 19 mg/dL (8.4-25.7); Bilirubin, Total 1.3 mg/dL (0.2-1.2); Calc. Creatinine Clearance 66 mL/min (70-130); Calcium 8.9 mg/dL (7.8-10.44); Carbon Dioxide 25 mmol/L (23-31); Chloride 105 mmol/L (98-107); Estimated GFR 88; Globulin 2.6 g/dL (2.4-3.5); Glucose 101 mg/dL (83-110); Magnesium 2.1 mg/dL (1.6-2.6); Potassium 4.8 mmol/L (3.5-5.1); Protein, Total 5.3 g/dL (5.8-8.1); Sodium 136 mmol/L (136-145)
[2023-08-20 12:29] VITALS: TEMP 98.7
[2023-08-20 12:36] VITALS: BP 120/66
== END 2023-08-20 12:36 | DRG 308 ==
LOC: INTOOBSV 20:11 → 2NO 20:11 → OBSVTOIN 08-14 14:03
PROVIDERS: ADMIT Hospitalist; ATTEND Internal Medicine
PROC: 0DH63UZ Insertion of Feeding Device into Stomach, Percutaneous Approach (ICD-10-PCS; principal; 2023-08-14)
PROC: 30233J1 Transfusion of Nonautologous Serum Albumin into Peripheral Vein, Percutaneous Approach (ICD-10-PCS; 2023-08-16)
PROC: 5A09357 Assistance with Respiratory Ventilation, Less than 24 Consecutive Hours, Continuous Positive Airway Pressure (ICD-10-PCS; 2023-08-16)
DX: I48.0 Paroxysmal atrial fibrillation (principal); E43 Unspecified severe protein-calorie malnutrition; J69.0 Pneumonitis due to inhalation of food and vomit; J96.01 Acute respiratory failure with hypoxia; E87.1 Hypo-osmolality and hyponatremia; K22.2 Esophageal obstruction; K59.00 Constipation, unspecified; N40.0 Benign prostatic hyperplasia without lower urinary tract symptoms; E87.6 Hypokalemia; E83.42 Hypomagnesemia; Z79.01 Long term (current) use of anticoagulants; Z79.899 Other long term (current) drug therapy; I10 Essential (primary) hypertension
CPT/HCPCS: 36415; 36416; 74018; 80048; 80053; 80076; 81001; 83735; 84100; 85025; 94640; 96374; 96375; B4087; C9113; G0378; J0612; J0696; J1956; J2001; J2704; J3010; J3475; J3480; J3490; J7050; J7620